=== PATIENT | female | born 1980 | race Caucasian/White ===

== ENCOUNTER 2021-08-18 09:05 | Outpatient (CLI) | payer OTHER, SELFPAY ==
[2021-08-18 09:37] LABS: Hematocrit 38.3 % (37.0-47.0); Hemoglobin 12.8 g/dL (12.0-15.0); Mean Corpuscular HGB Conc 33.4 g/dl (32-36); Mean Corpuscular Hemoglobin 32.2 pg (26-34); Mean Corpuscular Volume 96.5 fl (80-100); Mean Platelet Volume 10.4 fl (7.4-10.4); Platelet Count Result 226 k/mm3 (150-375); Red Blood Count 3.97 M/mm3 (4.2-5.4); Red Cell Distribution Width 13.8 % (11.5-14.5); White Blood Count 8.8 K/mm3 (4.5-10.0)
[2021-08-20 06:16] LABS: Rapid Plasma Reagin Non-Reactive (NonReactive)
== END 2021-08-18 09:06 | disposition home or self-care (01) ==
LOC: ANHLAB 09:06
PROVIDERS: PCP Family Medicine; Visit Provider Obstetrics & Gynecology
DX: Z34.93 Encounter for supervision of normal pregnancy, unspecified, third trimester (principal); Z3A.00 Weeks of gestation of pregnancy not specified
CPT/HCPCS: 36415; 85027; 86592; 86850; 86900; 86901

== ENCOUNTER 2021-08-20 09:56 | Inpatient (IN) | payer OTHER, SELFPAY ==
--- NOTE | 2021-07-30 13:31 | PC.NURSE ---
Verified with OR schedule and patient--c/s on 08/20/21 at 0730 Patient given requisition for pre-op labs on 08/18/21 patient states she is having a tubal ligation with c/s--consents signed
[2021-08-20] VITALS (52 sets, daily range): BP systolic 74–122; BP diastolic 41–80; PULSE 58–89; RESP 14–21; TEMP 36–36.6; O2SAT 91–100; BMI 27.1
--- OUTSIDE RECORDS SUMMARY | 2021-08-20 10:02 | XMS_ITS | Encounter Summary ---
:1980 Author Care Team Providers Name Role Phone Jagruti Sewell MD Primary Care Provider [phone] Reason for Visit OB visit Assessment and Plan 1. Advanced maternal age 2. Diabetes mellitus Discussion Note: None recorded.Patient educational handouts: No information available. Plan of Care Reminders Provider Appointments Surg Post 08/29/2021 Harish Bautista Op 2:30PM MD Deyvi ? 3Hr on or around RN Tate simon RN Glucose 10/05/2021 Lab None ? ? recorded. Referral None ? ? recorded. Procedures None ? ? recorded. Surgeries None ? ? recorded. Imaging None ? ? recorded. Medications Name Start Date ? ? aspirin 81 mg chewable tablet ? clindamycin HCl 300 mg capsule ? TAKE 2 CAPSULES BY MOUTH ONE HOUR BEFOR E SURGERY, AND ONE CAPSULE 8 HOURS AFTER THE FIRST DOSE FreeStyle Lancets 28 gauge ? FreeStyle Lite Meter kit ? Humulin N NPH U-100 Insulin (isophane susp) 100 unit/m L subcutaneous ? INJECT 36 UNITS SUBCUTANEOUSLY AT BEDTIME insulin syringe U-100 with needle 0.5 mL 31 gauge x ? USE DIRECTED magnesium oxide 400 mg (241.3 mg magnesium) tablet ? OneTouch Verio test strips ? Take blood sugar QID. Check fasting and 1 hr post justine akfast, lunch, and dinner
--- OUTSIDE RECORDS SUMMARY | 2021-08-20 10:02 | XMS_ITS | Encounter Summary ---
:1980 Author Care Team Providers Name Role Phone Jagruti Sewell MD Primary Care Provider [phone] Reason for Visit None recorded. Assessment and Plan 1. Gestational diabetes mellitus ? US, obstetric, biophysical profile + non-stress test Discussion Note: None recorded.Patient educational handouts: No information available. Plan of Care Reminders Provider Appointments Surg Post Op 08/29/2021 Francine Bautista 2:30PM MD Deyvi ? 3Hr Glucose on or around RN Schedule, RN 10/05/2021 Lab None ? ? recorded. Referral None ? ? recorded. Procedures None ? ? recorded. Surgeries None ? ? recorded. Imaging US, 08/14/2021 [facility], Biophysical Profile + Non-stress Test Medications Name Start Date ? ? aspirin [...] with needle 0.5 mL 31 gauge x 5/ 16 ? USE DIRECTED magnesium oxide 400 mg (241.3
--- OUTSIDE RECORDS SUMMARY | 2021-08-20 10:02 | XMS_ITS | Encounter Summary ---
:1980 Author Care Team Providers Name Role Phone Jagruti Sewell MD Primary Care Provider [phone] Reason for Visit None recorded. Assessment and Plan 1. Gestational diabetes mellitus , class A>1< ? non-stress test Discussion Note: None recorded.Patient educational handouts: No information available. Plan of Care Reminders Provider Appointments Surg Post 08/29/2021 Harish Bautista Op 2:30PM MD Deyvi ? 3Hr on or around LIZ simon RN Glucose 10/05/2021 Lab None ? ? recorded. Referral None ? ? recorded. Procedures None ? ? recorded. Surgeries None ? ? recorded. Imaging Non-stress 08/07/2021 Amisha norton Test Medications Name Start Date ? ? [...] Check fasting and 1 hr post justine akfa
--- OUTSIDE RECORDS SUMMARY | 2021-08-20 10:02 | XMS_ITS | Encounter Summary ---
:1980 Author Care Team Providers Name Role Phone Jagruti Sewell MD Primary Care Provider [phone] Reason for Visit None recorded. Assessment and Plan 1. Gestational diabetes mellitus , class A>1< ? US, obstetric, biophysical profile + non-stress [...] Surgeries None ? ? recorded. Imaging US, 08/07/2021 [facility] [facility], Biophysical Profile + Non-stress Test Medications [...] x 5/ 16 ? USE DIRECTED magnesium oxid
--- OUTSIDE RECORDS SUMMARY | 2021-08-20 10:02 | XMS_ITS | Encounter Summary ---
:1980 Author Care Team Providers Name Role Phone Jagruti Sewell MD Primary Care Provider [phone] Reason for Visit None recorded. Assessment and Plan 1. Advanced maternal age ? non-stress test Discussion Note: None recorded.Patient educational handouts: No information available. Plan of Care Reminders Provider Appointments Surg Post 08/29/2021 Harish Bautista Op 2:30PM MD Deyvi ? 3Hr on or around RN Tate simon RN Glucose 10/05/2021 Lab None ? ? recorded. Referral None ? ? recorded. Procedures None ? ? recorded. Surgeries None ? ? recorded. Imaging Non-stress 08/14/2021 Marybrunilda norton Test Medications Name Start Date ? [...] 1 hr post justine akfast, lunch, and d
--- OUTSIDE RECORDS SUMMARY | 2021-08-20 10:02 | XMS_ITS ---
:1980 Author Care Team Providers Name Role Phone LYLY DOW MD Primary Care Provider [phone] Allergies Code Code System Name Reaction Severity Status Onset NKDA ? Medications Name Status Start Date Stop Date ? ? aspirin 81 mg chewable tablet Active ? No t available clindamycin HCl 300 mg capsule Active ? N ot available TAKE 2 CAPSULES BY MOUTH ONE HOUR BEFOR E SURGERY, AND ONE CAPSULE 8 HOURS AFTER THE FIRST DOSE erythromycin with ethanol 2 % topical Completed ? 02/13/2021 gel escitalopram 10 mg tablet Completed ? 2020 TAKE 1 TABLET BY MOUTH ONCE DAILY FreeStyle Lancets 28 gauge Active ? Not a vailable FreeStyle Lite Meter kit Active ? Not ariela ilable Humulin N NPH U-100 Insulin (isophane susp) 100 unit/mL subcutan eous Active ? Not available INJECT 36 UNITS SUBCUTANEOUSLY AT BEDTIME hydroxyzine HCl 10 mg tablet Completed ? indomethacin 25 mg capsule Completed ? 01/16 insulin syringe U-100 with needle 0.5 mL 31 gauge x 08/13 Active ? Not available USE DIRECTED magnesium oxide 400 mg (241.3 mg Active ? Not available magnesium) tablet metoclopramide 10 mg tablet Completed ? 01/29 TAKE 1 TABLET BY MOUTH 4 TIMES DAILY NEEDED FOR VOMITING norgestimate-ethinyl estradiol 0.18 Completed ? 01/15/2021 mg/0.215mg/0.25mg-35 mcg(28)tablet OneTouch Verio test strips Active ? Not a vailable Take blood sugar QID. Check fasting and 1 hr post justine akfast, lunch, and dinner
--- OUTSIDE RECORDS SUMMARY | 2021-08-20 10:02 | XMS_ITS | Encounter Summary ---
:1980 Author Care Team Providers Name Role Phone Jagruti Sewell MD Primary Care Provider [phone] Reason for Visit OB visit Assessment and Plan 1. Advanced maternal age Discussion Note: None recorded.Patient educational handouts: No [...] hr post justine akfast, lunch, and dinner ? Medications Admin
--- OUTSIDE RECORDS SUMMARY | 2021-08-20 10:03 | XMS_ITS | Encounter Summary ---
:1980 Author Care Team Providers Name Role Phone Jagruti Sewell MD Primary Care Provider [phone] Reason for Visit None recorded. Assessment and Plan 1. Gestational diabetes mellitus , class A>2< ? non-stress test Discussion Note: None recorded.Patient educational handouts: No information available. Plan of Care Reminders Provider Appointments Surg Post 08/29/2021 Harish Bautista Op 2:30PM MD Deyvi ? 3Hr on or around LIZ simon RN Glucose 10/05/2021 Lab None ? ? recorded. Referral None ? ? recorded. Procedures None ? ? recorded. Surgeries None ? ? recorded. Imaging Non-stress 07/10/2021 Amisha norton Test Medications Name Start Date [...] Check fasting and 1 hr post justine akf
--- OUTSIDE RECORDS SUMMARY | 2021-08-20 10:03 | XMS_ITS | Encounter Summary ---
:1980 Author Care Team Providers Name Role Phone Jagruti Sewell MD Primary Care Provider [phone] Reason for Visit OB visit Assessment and [...]
--- OUTSIDE RECORDS SUMMARY | 2021-08-20 10:03 | XMS_ITS | Encounter Summary ---
:1980 Author Care Team Providers Name Role Phone Jagruti Sewell MD Primary Care Provider [phone] Reason for Visit None recorded. Assessment and Plan 1. Gestational diabetes mellitus , class A>1< ? non-stress test Discussion Note: None recorded.Patient educational handouts: No information available. Plan of Care Reminders Provider Appointments Surg Post 08/29/2021 Harish Bautista Op 2:30PM MD Deyvi ? 3Hr on or around LZI simon RN Glucose 10/05/2021 Lab None ? ? recorded. Referral None ? ? recorded. Procedures None ? ? recorded. Surgeries None ? ? recorded. Imaging Non-stress 07/16/2021 Amisha norton Test Medications Name Start Date [...]
--- OUTSIDE RECORDS SUMMARY | 2021-08-20 10:03 | XMS_ITS | Encounter Summary ---
:1980 Author Care Team Providers Name Role Phone Jagruti Sewell MD Primary Care Provider [phone] Reason for Visit OB visit Assessment and Plan 1. Advanced maternal age 2. Diabetes mellitus 3. Delivery by elective section ? section (SURG) Discussion Note: None recorded.Patient educational handouts: No information available. Plan of Care Reminders Provider Appointments Surg Post 08/29/2021 Harish Bautista Op 2:30PM MD Deyvi ? 3Hr Glucose on or around RN Schedule, RN 10/05/2021 Lab None ? ? recorded. Referral None ? ? recorded. Procedures None ? ? recorded. Surgeries 08/20/2021 [place] Section (SURG) [facility] None ? ? recorded. Medications Name [...]
--- OUTSIDE RECORDS SUMMARY | 2021-08-20 10:03 | XMS_ITS | Encounter Summary ---
:1980 Author Care Team Providers Name Role Phone Jagruti Sewell MD Primary Care Provider [phone] Reason for Visit None recorded. Assessment and [...] Surgeries None ? ? recorded. Imaging Non-stress 07/02/2021 Amisha norton Test Medications Name Start Date [...]
--- OUTSIDE RECORDS SUMMARY | 2021-08-20 10:03 | XMS_ITS | Encounter Summary ---
:1980 Author Care Team Providers Name Role Phone Jagruti Sewell MD Primary Care Provider [phone] Reason for Visit None recorded. Assessment and Plan 1. Pre-existing type 2 diabetes mellitus in ? US, obstetric, follow-up ? US, obstetric, biophysical profile + non-stress [...] Surgeries None ? ? recorded. Imaging US, 07/31/2021 [facility], Follow-up ? , 07/31/2021 [facility], Biophysical Profile + Non-stress Test Medications [...]
--- OUTSIDE RECORDS SUMMARY | 2021-08-20 10:03 | XMS_ITS | Encounter Summary ---
:1980 Author Care Team Providers Name Role Phone Jagruti Sewell MD Primary Care Provider [phone] Reason for Visit None recorded. Assessment and [...] Surgeries None ? ? recorded. Imaging Non-stress 07/23/2021 Amisha norton Test Medications Name Start Date [...]
--- OUTSIDE RECORDS SUMMARY | 2021-08-20 10:03 | XMS_ITS | Encounter Summary ---
:1980 Author Care Team Providers Name Role Phone Jagruti Sewell MD Primary Care Provider [phone] Reason for Visit OB visit Pt is here today for her 32 week ob visi t/ nst/us. Assessment and Plan Assessment Note Patient is ___weeks . Discu ssed plan. 1. Routine care Discussion Note: None recorded.Patient educational handouts: No [...] with needle 0.5 mL 31 gauge x 16 ? USE DIRECTED magnesium oxide 400 mg (241.3 mg magnesium) table
--- OUTSIDE RECORDS SUMMARY | 2021-08-20 10:03 | XMS_ITS | Encounter Summary ---
:1980 Author Care Team Providers Name Role Phone Jagruti Sewell MD Primary Care Provider [phone] Reason for Visit OB visit Assessment and Plan Assessment Note Patient is [...]
--- OUTSIDE RECORDS SUMMARY | 2021-08-20 10:03 | XMS_ITS | Encounter Summary ---
:1980 Author Care Team Providers Name Role Phone Jagruti Sewell MD Primary Care Provider [phone] Reason for Visit None recorded. Assessment and Plan 1. Advanced maternal age ? US, obstetric, biophysical profile + non-stress [...] Surgeries None ? ? recorded. Imaging US, 07/23/2021 [facility], Biophysical Profile + Non-stress Test Medications [...]
--- OUTSIDE RECORDS SUMMARY | 2021-08-20 10:03 | XMS_ITS | Encounter Summary ---
:1980 Author Care Team Providers Name Role Phone Jagruti Sewell MD Primary Care Provider [phone] Reason for Visit None recorded. Assessment and [...] Surgeries None ? ? recorded. Imaging Non-stress 07/31/2021 Marybrunilda norton Test Medications Name Start Date [...] 1 hr post justine akfast, lunch, and di
--- OUTSIDE RECORDS SUMMARY | 2021-08-20 10:03 | XMS_ITS | Encounter Summary ---
:1980 Author Care Team Providers Name Role Phone Jagruti Sewell MD Primary Care Provider [phone] Reason for Visit None recorded. Assessment and Plan 1. Gestational diabetes mellitus , class A>2< ? US, obstetric, biophysical profile + non-stress [...] Surgeries None ? ? recorded. Imaging US, 07/10/2021 [facility], Biophysical Profile + Non-stress Test Medications [...] x 5/ 16 ? USE DIRECTED magnesium oxi
--- OUTSIDE RECORDS SUMMARY | 2021-08-20 10:03 | XMS_ITS | Encounter Summary ---
:1980 Author Care Team Providers Name Role Phone Jagruti Sewell MD Primary Care Provider [phone] Reason for Visit OB visit Assessment and [...]
--- OUTSIDE RECORDS SUMMARY | 2021-08-20 10:03 | XMS_ITS | Encounter Summary ---
:1980 Author Care Team Providers Name Role Phone Jagruti Sewell MD Primary Care Provider [phone] Reason for Visit None recorded. Assessment and [...] Surgeries None ? ? recorded. Imaging US, 07/16/2021 [facility], Biophysical Profile + Non-stress Test Medications [...]
--- OUTSIDE RECORDS SUMMARY | 2021-08-20 10:04 | XMS_ITS | Encounter Summary ---
:1980 Author Care Team Providers Name Role Phone Jagruti Sewell MD Primary Care Provider [phone] Reason for Visit None recorded. Assessment and Plan 1. Gestational diabetes mellitus , class A>1< ? US, obstetric, follow-up ? US, obstetric, transvagina l Discussion Note: None recorded.Patient educational handouts: No information available. Plan of Care Reminders Provider Appointments Surg Post Op 08/29/2021 Francine Bautista 2:30PM MD Deyvi ? 3Hr Glucose on or around RN Schedule, RN 10/05/2021 Lab None recorded. ? ? Referral None recorded. ? ? Procedures None recorded. ? ? Surgeries None recorded. ? ? Imaging US, Obstetric, 06/04/2021 Kasandra cervantes Follow-up ? US, Obstetric, 06/04/2021 Kasandra cervantes Transvaginal Medications Name Start Date ? ? aspirin [...] syringe U-100 with needle 0.5 mL 31 g
--- OUTSIDE RECORDS SUMMARY | 2021-08-20 10:04 | XMS_ITS | Encounter Summary ---
:1980 Author Care Team Providers Name Role Phone Jagruti Sewell MD Primary Care Provider [phone] Reason for Visit OB visit Assessment and [...]
--- OUTSIDE RECORDS SUMMARY | 2021-08-20 10:04 | XMS_ITS ---
:1980 Author Care Team Providers Name Role Phone Jagruti Sewell Primary Care Provider Unavailable Allergies Code Code System Name Reaction Severity Status Onset NKDA ? Medications Name Status Start Date Stop Date ? ? aspirin 81 mg chewable tablet Active ? No t available erythromycin with ethanol 2 % topical gel Active ? Not available escitalopram 10 mg tablet Active ? Not av ailable FreeStyle Lancets 28 gauge Active ? Not a vailable FreeStyle Lite Meter kit Active ? Not ariela ilable FreeStyle Lite Strips Active ? Not availa ble hydroxyzine HCl 10 mg tablet Active ? Not available magnesium oxide 400 mg (241.3 mg Active ? Not available magnesium) tablet metoclopramide 10 mg tablet Active ? Not available norgestimate-ethinyl estradiol 0.18 Active ? Not available mg/0.215mg/0.25mg-35 mcg(28)tablet trazodone 50 mg tablet Active ? Not avail able Notes: DHEA Probiotic Problems Name Status Onset Date Source ? Chronic Interstitial Cystitis Active 03/12/2021 ? Prediabetes Active 03/12/2021 ? Procedures Notes: ear lobe repair during ch ildhood Results Lab Results None recorded. Past Encounters 03/12/2021 Prediabetes Jagruti Sewell MD: [address] , [place] [address], Ph. Social History
--- OUTSIDE RECORDS SUMMARY | 2021-08-20 10:04 | XMS_ITS | Encounter Summary ---
:1980 Author Care Team Providers Name Role Phone Jagruti Sewell MD Primary Care Provider [phone] Reason for Visit None recorded. Assessment and Plan 1. Gestational diabetes mellitus , class A>2< Insulin teaching. Insulin teac macy completed. Pt instructed on insulin at HS and instructed on administration site s. Pt instructed on how to clean the insulin vial and administration site. Instructed on insulin syringe and how to draw up insulin. I demonstrated how to draw up 5 units of insulin and patient returned demonstration. Pt has no questions at th is time. Pt will call after she picks up her insulin rx and syringes if she has quest ions before administering tonight. Pt informed we will call her next week to eloy liraw her BS log. Jagruti Dickinson RN ? US, obstetric, follow-up Discussion Note: None recorded.Patient educational handouts: No information available. Plan of Care Reminders Provider Appointments Surg Post 08/29/2021 Harish Bautista Op 2:30PM MD Deyvi ? 3Hr on or around LIZ simon RN Glucose 10/05/2021 Lab None ? ? recorded. Referral None ? ? recorded. Procedures None ? ? recorded. Surgeries None ? ? recorded. Imaging US, 07/02/2021 [facility], Follow-up Medications Name Start Date ? ?
--- OUTSIDE RECORDS SUMMARY | 2021-08-20 10:04 | XMS_ITS | Encounter Summary ---
:1980 Author Care Team Providers Name Role Phone Jagruti Sewell MD Primary Care Provider [phone] Reason for Visit OB visit Assessment and [...]
--- NOTE | 2021-08-20 10:15 | LDADM ---
This patient, Cheikh Borrero, was admitted to Labor/Delivery/Recovery 120 on 08/20/21 at 09:56. Plans for labor, pain management and were discussed with patient. Patient/family oriented to hospital policies and general routines including ID bracelet, bed and alarms, visiting hours, pain management, procedures, bathroom and other care routines, personal items, smoking policy, room service/diet and guest tray routines, security routines, and visiting hours. Patient/Family are encouraged to report perceived risks to care and to ask questions if they do not understand what they are told or what they should do. See OBIX for further documentation.
[2021-08-20] MEDS: LACTATED RINGERS 1,000 ML 125 ML IV CONT ×2 (10:32→11:27)
[2021-08-20 10:56] LABS: Glucose Point of Care 91 mg/dl (65-105)
--- NOTE | 2021-08-20 11:16 | P.PNAN_ITS ---
Anes - Initial Pre Proc Eval Procedure: Operation Date: 08/20/21 07:30 Proposed Procedures p Section with Bilateral Tubal Ligation - Katlyn Carnes MD Date/Time: 08/20/21 11:16 Surgeon: Kamini Ware MD Pre Op Diagnosis: C/S Patient Data Age: 41 Gender: F Height: 1.68 m Weight: 76.3 kg Last Vital Signs Pulse 79 08/20/21 11:15 BP 118/63 08/20/21 11:15 Allergies Allergy/AdvReac Type Severity Reaction Status Date / Time No Known Allergies Allergy Verified 08/20/21 10:23 Home Medications Medication Instructions Recorded Confirmed Type PNV no.23-wmxr-ycemt acid 1 tablet PO DAILY 07/30/21 08/20/21 History [Complete ] DHA+Complete 1 tab-cap PO DAILY 07/30/21 08/20/21 History lactobacillus comb no.10 20,000 mmu cells PO DAILY 07/30/21 08/20/21 History [Probiotic] insulin NPH isoph U-100 human 42 unit SUBCUT HS 08/20/21 08/20/21 History [Humulin N NPH U-100 Insulin] Laboratory Tests 08/20/21 10:54 POC Capillary Glucose 91 mg/dl mg/dl (65-105) Patient hx anesthesia problems: none Family hx anesthesia problems: none Results Review: All pre-operative results and documents have been reviewed as part of the pre-operative evaluation. [facility] Past Medical History Medical History (Updated 08/20/21 @ 11:17 by Naun Edgar DO) GDM (gestational diabetes mellitus) Interstitial cystitis Migraine Family History Family History (Updated 07/30/21 @ 13:06 by Bnog Garcia RN) Father Diabetes mellitus Heart disease Hypertension Mother Cerebral palsy Depression Migraines Cerebrovascular accident Gestational diabetes Grandparent Migraines Stomach ulcer Grandparent Diabetes mellitus Heart disease Hypertension Grandparent Epilepsy Social History Social History Smoking packs per day: 1 Smoking cigarettes per day: 20.0 Years smoked: 13 Smoking pack-years: 13.00 Smoking status: Never smoker Tobacco type: cigarettes Smoking end date: 03/31/11 Alcohol intake: current Drinks per week: 2 Substance use: never Substance use type: marijuana Spiritual care concerns: No Anes - Eval Final PreProcedure Day of Procedure 08/20/21 11:16 Patient weight: overweight Heart: regular rate and rhythm Lungs: clear to auscultation and normal air movement Airway: Mallampati scale class II Neurological: alert and oriented Last oral intake: >/= 8 hours ASA classification: III Emergent: no Anesthetic plan: proceed Anesthesia type and monitoring: regional spinal and standard monitoring Results Review: All pre-operative results and documents have been reviewed as part of the pre-operative evaluation. Informed Consent: The patient's anesthetic plan and its attendant risks and b enefits were discussed with the patient/family/POA. Questions were solicited and answers provided to the satisfaction of the patient/family/POA.
--- NOTE | 2021-08-20 12:12 | WPDHPUPDATE1 ---
History and Physical Update Update Date/Time: 08/20/21 12:12 History and Physical has been reviewed, including an updated exam of the patient. There are NO changes in the patient's condition. Risks, benefits, and alternatives have been discussed and questions answered. Patient agrees to proceed with procedure.
--- NOTE | 2021-08-20 12:12 | PM.IMHP ---
H&P: HPI History of Present Illness Date/Time: 08/20/21 12:12This patient is 41-year-old multiparous female who presents for primary delivery. She is at 39 weeks gestation has history of pelvic floor dysfunction. She desires female sterilization. We have agreed to perform low-transverse delivery and bilateral tubal ligation. She understands the risks and that injuries may occur during the surgery. She understands that injuries from result in hospitalization, more surgery, and severe illness. She understands risk of hemorrhage infection. Chief Complaint: Term Review of Systems Review of Systems: All systems reviewed & are unremarkable except as noted in HPI and below Constitutional: Constitutional: Denies chills, Denies fatigue, Denies fever(s) and Denies weakness Eyes: Eyes: Denies blurry vision, Denies change in vision, Denies loss of peripheral vision, Denies loss of vision, Denies other visual disturbances and Denies eye pain ENT: Denies vertigo, Denies dizziness, Denies hearing loss, Denies mouth pain, Denies nasal obstruction, Denies neck mass and Denies neck pain Cardiovascular: Cardiovascular: Denies chest pain, Denies diaphoresis, Denies syncope, Denies leg edema and Denies dyspnea Respiratory: Respiratory: Denies chest congestion, Denies cough, Denies hemoptysis, Denies dyspnea and Denies wheezing Gastrointestinal: Gastrointestinal: Denies abdominal pain, Denies constipation, Denies diarrhea, Denies nausea and Denies vomiting Genitourinary: Genitourinary: Denies hematuria, Denies change in libido, Denies nocturia, Denies genital lesions, Denies flank pain and Denies urinary urgency Musculoskeletal: Musculoskeletal: Denies abnormal gait, Denies back pain, Denies myalgias, Denies arthralgias, Denies joint swelling, Denies muscle weakness and Denies neck pain Integumentary/Breasts: Skin/Breast: Denies swelling, Denies breast pain, Denies breast mass, Denies dry skin, Denies nipple discharge, Denies unusual bruising and Denies jaundice Neurologic: Denies Neuro-related abnormal movements, Denies Abnormal speech present, Denies abnormal gait, Denies behavioral changes, Denies confusion, Denies vertigo, Denies dizziness, Denies syncope, Denies loss of vision, Denies memory loss, Denies convulsions and Denies weakness Psychiatric: Psychiatric: Denies abnormal sleep pattern, Denies behavioral changes, Denies change in libido, Denies confusion, Denies depression, Denies anhedonia and Denies memory loss Endocrine: Endocrine: Reports no additional endocrine complaints, Denies change in libido and Denies fatigue Hematologic/Lymphatic: Hematologic/Lymphatic: Reports no additional hematologic/lymphatic complaints Allergic/Immunologic: Allergic/Immunologic: Reports no additional allergic/immunologic complaints and Denies wheezing PMFSH Past Medical History Medical History (Updated 08/20/21 @ 12:13 by Katlyn Carnes MD) GDM (gestational diabetes mellitus) Interstitial cystitis Migraine Family History Family History (Updated 07/30/21 @ 13:06 by Bong Garcia RN) Father Diabetes mellitus Heart disease Hypertension Mother Cerebral palsy Depression Migraines Cerebrovascular accident Gestational diabetes Grandparent Migraines Stomach ulcer Grandparent Diabetes mellitus Heart disease Hypertension Grandparent Epilepsy Social History Social History Smoking packs per day: 1 Smoking cigarettes per day: 20.0 Years smoked: 13 Smoking pack-years: 13.00 Smoking status: Never smoker Tobacco type: cigarettes Smoking end date: 03/31/11 Alcohol intake: current Drinks per week: 2 Substance use: never Substance use type: marijuana Spiritual care concerns: No Meds Home Medications and Allergies Home Medications Medication Instructions Recorded Confirmed Type PNV no.[id number] acid 1 tablet PO D
[2021-08-20] MEDS: KETOROLAC 30 MG/ML VIAL (*BKC) 15 MG IV PUSH (12:40)
--- NOTE | 2021-08-20 12:54 | W.PM.PROC2 ---
Procedure Note - Detailed Date of Procedure 08/20/21 Pre-op Diagnosis C/S, pelvic floor dysfunction and female sterilization Post-op Diagnosis Same Procedure Performed Low-transverse section Surgeon Katlyn Carnes MD Anesthesia Spinal Findings Normal gestational maternal anatomy, average size infant, normal Apgars. Description of Procedure The patient was taken the operating room. She was prepped and draped in dorsal supine position with a leftward tilt. This was done after spinal anesthetic was applied. A low-transverse skin incision was made and carried down till of the fascia with the knife. The fascial incision was made with the knife. The fascial incision was extended laterally with Mcwilliams scissors. The fascia was tented upward superiorly and inferiorly the rectus muscles were dissected off bluntly. The rectus muscles were the midline. The preperitoneal fat and peritoneum were dissected open bluntly at the superior aspect of the rectus muscles. The peritoneal incision was extended superior and inferior with good position of bladder. The uterine incision was made with a scalpel down to the level of the amniotic cavity. The amniotic cavity was entered bluntly. The was delivered. The cord was clamped and cut and the was handed off to waiting pediatric staff. Cord bloods were obtained. The placenta was removed manually. The uterus was exteriorized. The uterus was cleared of all clots, debris and membranes. The uterus was closed in 0 Vicryl running lock fashion. An imbricating over a was placed along the incision line as well. Each fallopian tube was grasped and raised with a Mitzy. With from the underlying venous structures. The mesosalpinx between the tube and the rest the adnexa was cauterized and transected with LigaSure cautery. It was performed from the distal tube near the ovary in a stepwise fashion towards the cornua. The tube at the cornua was cauterized transected with LigaSure cautery. This was performed in a bilateral fashion. The uterus was returned to the abdomen. The gutters were cleared of all clots and debris. The fascia was closed with 0 Vicryl running fashion. The subcutaneous tissue was irrigated pinpoint bleeders were cauterized. The skin was closed with subcuticular absorbable juan. The skin incision line was covered with glue. The patient tolerated the procedure well. She has taken recovery room in stable condition. Sponge lap and needle counts were correct x2. Packing No Pathology Yes Complications No immediate complications Condition Stable Disposition PACU
[2021-08-20] MEDS: OXYTOCIN 30 UNITS/NS 500 ML 30 UNITS/500 ML BAG 125 UNITS IV CONT (13:56)
[2021-08-20] MEDS: fentaNYL CITRATE INJ (*CRX) 100 MCG/2 ML VIAL 25 MCG IV PUSH (15:09)
--- NOTE | 2021-08-20 15:13 | PC.NURSE ---
Called at 1452 to give report. Report given to nurse at this time.
--- NOTE | 2021-08-20 15:20 | PC.NURSE ---
Patient transferred to post room #282 per stretcher from labor and delivery. Support person present. Oriented to unit, room, information board, rooming in, admission packet and security measures. Patient verbalizes understanding.
[2021-08-20] MEDS: DEXTROSE 5%/0.45% SOD CHL 1,000 ML 125 ML IV CONT (17:50)
[2021-08-21] MEDS: SIMETHICONE 80 MG TAB.CHEW PO ×4 (01:58→21:31)
[2021-08-21] MEDS: IBUPROFEN 600 MG TABLET PO ×4 (01:58→21:31)
[2021-08-21 07:05] LABS: Basophils Absolute Auto 0.1 K/mm3 (0.0-0.1); Basophils Percent Auto 0.4 % (0.2-1.2); Eosinophils Absolute Auto 0.1 K/mm3 (0-0.3); Eosinophils Percent Auto 0.9 % (0-4.4); Hemoglobin 11.6 g/dL (12.0-15.0); Immature Granulocyte Absolute 0.08 K/mm3 (0.00-0.031); Immature Granulocyte Percent A 0.6 % (0-0.5); Lymphocytes Absolute Auto 0.99 K/mm3 (0.9-3.2); Lymphocytes Percent Auto 7.7 % (18.3-44.2); Mean Corpuscular HGB Conc 33.1 g/dl (32-36); Mean Corpuscular Hemoglobin 31.8 pg (26-34); Mean Corpuscular Volume 95.9 fl (80-100); Mean Platelet Volume 10.4 fl (7.4-10.4); Monocytes Absolute Auto 0.7 K/mm3 (0.1-0.6); Monocytes Percent Auto 5.4 % (2.6-8.5); Neutrophils Absolute Auto 10.9 K/mm3 (1.3-6.7); Platelet Count Result 226 k/mm3 (150-375); Red Blood Count 3.65 M/mm3 (4.2-5.4); Red Cell Distribution Width 13.8 % (11.5-14.5); White Blood Count 12.9 K/mm3 (4.5-10.0)
[2021-08-21 07:40] VITALS: BP 122/58; PULSE 80; RESP 18; TEMP 37.6; O2SAT 98
[2021-08-21] MEDS: MULTIVIT/MIN/PREN/FOL AC/IRON TABLET 1 TAB PO (08:15)
[2021-08-21] MEDS: DOCUSATE SODIUM 100 MG CAPSULE PO (08:15)
[2021-08-21 12:07] VITALS: BP 118/52; PULSE 82; RESP 16; TEMP 36.8; O2SAT 98
--- NOTE | 2021-08-21 14:28 | WPDANLDPN2 ---
Anes-Prog Note L&D Date/Time: 08/21/21 14:28 Comfortable throughout: section Neuraxial method: spinal Epidural/Spinal procedure site: clean & non-tender Neuro status: Neuro function grossly intact. Cardiovascular status: normal Respiratory status: normal Airway patency: baseline Mental status: baseline Post-Op hydration status: normal Vital Signs: Last Vital Signs Temp 36.8 C 08/21/21 12:07 Pulse 82 08/21/21 12:07 Resp 16 08/21/21 12:07 BP 118/52 L 08/21/21 12:07 Pulse Ox 98 08/21/21 12:07 O2 Del Method Room Air 08/21/21 08:15 Pain score (VAS): 04/09 I/O: Intake & Output 08/20/21 08/21/21 08/21/21 23:59 07:59 15:59 Intake Total 3300 600 Output Total 1875 3700 Balance 1425 -3100 Post-procedural complaints: none Patient feedback: Patient satisfied with anesthetic care.
--- NOTE | 2021-08-21 14:28 | WPDANLDNPN2 ---
Anes-Prog Note L&D-Neuraxial Date/Time: 08/21/21 14:28 Neuraxial medications: intrathecal PF morphine Opiod-related complaints: pruritis mild, no treatment Patient feedback: Patient satisfied with post-operative pain management.
[2021-08-21 18:56] VITALS: BP 134/57; PULSE 84; RESP 18; TEMP 36.9
[2021-08-21] MEDS: HYDROcodone/acetaminophen (*CRX) 5-325 MG TABLET 1 TAB PO (21:31)
[2021-08-22] MEDS: SIMETHICONE 80 MG TAB.CHEW PO ×2 (04:54→10:16)
[2021-08-22] MEDS: HYDROcodone/acetaminophen (*CRX) 5-325 MG TABLET 1 TAB PO ×2 (04:54→10:16)
[2021-08-22] MEDS: IBUPROFEN 600 MG TABLET PO (04:54)
--- NOTE | 2021-08-22 07:13 | PM.OBPNVD ---
OB - PN: Subj Subjective Date/time seen: 08/22/21 07:13 OB - PN: Obj Data Labs CBC & Chem 7: 08/21/21 03:00 OB - PN A/P Plan day: 2 Plan: routine care and discharge home Time Spent With Patient Time: Total time spent is greater than 50% in coordination of care (as documented) at patient's floor/unit and/or counseling patient: Review of Systems Review of Systems: All systems reviewed & are unremarkable except as noted in HPI and below Exam Narrative: Incision clean, dry, intact. Const: General: cooperative, healthy appearing and comfortable
--- NOTE | 2021-08-22 07:17 | PM.OBDSVD ---
DS: Admitting Diagnosis Discharge Date 08/22/21 Admitting Diagnosis section OB - DS: Summary OB Procedures : None OB Procedures Intrapartum: OB Procedures: : None Peripartum Data Procedures: Procedures Operation Date: 08/20/21 07:30 Actual Procedure Side Surgeon p Section Bilateral Katlyn Carnes MD Time Spent with Patient Time attestation: Total time spent providing and/or coordinating discharge services: DS: Data Data Completed and Pending Pending studies at discharge: Pending at discharge 08/20/21 12:36 Surgical [PTH] Routine Surgical [PTH] Routine Surgical [PTH] Routine Discharge Plan Discharge Attending physician on discharge: Katlyn Carnes Discharging Clinician: Saray Gillespie Anticipated Discharge Date/Time: 08/22/21 07:16 Patient Disposition: Home, Self-Care Activity: pelvic rest Diet: regular Patient Instructions: Antibiotic Form Stand Alone Forms: General Discharge Information Follow-up/Referrals: Katlyn Carnes MD [Physician] - (1 week) Discharge Medications: Continued Probiotic 20 billion cell Capsule 20,000 mmu cells PO DAILY DHA+Complete 1 tab-cap PO DAILY Discontinued Complete 30-975 mg-mcg Tablet 1 tablet PO DAILY Humulin N NPH U-100 Insulin 100 unit/mL suspension 42 unit SUBCUT HS Date of admission: 08/20/21 09:56 Primary Care Provider: Mile Cornejo Admitting Provider: Kamini Ware Attending physician on admission: Kamini Ware Condition: Stable
--- NOTE | 2021-08-22 07:46 | PC.NURSE ---
late entry from 08/21/2021 [id number] Introductions were made, then consulted with patient to assess needs related to . Mother led the conversation with her experience feeding her so far. Mother works well with her working with getting a deeper latch with large nipples. Encouraged understanding of the benefits of skin to skin (unwrapping and placing vertically on her chest), responsive feeding and how to watch for early feeding signs, frequency of feeding on demand about every 8-12 times in 24 hours (every 2-3 hours), milk production, duration of feeding, signs of adequate intake/output and how to record on the feeding sheet. Reviewed positioning and ear, shoulder, hip alignment, supporting the breast, asymmetrical latch (off-center), and leading with the chin with a big open side gape. latched optimally to the right breast in cross cradle position. Education given to mother of how to visualize suck/swallow ratios and drinking at the breast. Infant was able to maintain latch without discomfort to mother. Nipple care reviewed with optimal latch and good positioning. Reminding mother of comfort measures of healing with a warm and wet washcloth to rinse breast, then leave open to air-dry as needed. Reviewed good handwashing when or touching the breast/nipples to prevent infection. Resources used to facilitate learning were used with the visual handouts/mom and baby guide. Mother voiced understanding of responsive feedings, stimulating with skin to skin, hand expressed colostrum, touch, talking to infant to encourage if it has been 2 -3 hours since the start of the last , to call if does not latch or there is discomfort with . Father of actively involved with encouragement, education, and information to help mother with understanding. Reported to the primary RN.
[2021-08-22 08:20] VITALS: BP 112/64; PULSE 77; RESP 16; TEMP 36.4; O2SAT 99
[2021-08-22] MEDS: MULTIVIT/MIN/PREN/FOL AC/IRON TABLET 1 TAB PO (10:16)
[2021-08-22] MEDS: DOCUSATE SODIUM 100 MG CAPSULE PO (10:16)
--- NOTE | 2021-08-22 13:59 | PC.NURSE ---
1016 Patient was given the opportunity to view the discharge video Mother & Baby Care, The First Two Weeks and to ask questions. Patient declined viewing the video and has been given the mother/baby guide for home reference.
--- NOTE | 2021-08-22 15:18 | PC.NURSE ---
[id number] Mother led the conversation with her experience and plan to feed her infant so far and her ability to continue with the plan of attempting to breastfeed/pump/supplement to feed . Mother is mostly pumping and feeding. Assessed pump flange (breast shield) fit for proper sizing. Instructions given on cleaning, care, usage, there should be no pain, pumping schedule for milk production, collection, and storage of human milk. Parents are encouraged to record pumping schedule on the feeding sheet. Patient was assessed for correct placement, flange size, to pump for comfort and nipple stretching/stimulation for adequate milk production. Mother is feeding appropriately for growth of and understands stimulating to eat if needed. has had appropriate feedings in the last 24 hours meets the outcomes for weight, output and jaundice at this time. Mother states she is confident to continue attempt to breastfeed/pumping/supplementing her infant at home or when to call for assistance and denies any additional assistance or education at this time. Reinforced understanding of milk production, transition of milk, signs of adequate intake, prevention/relief of engorgement, responsive after visualizing feeding cues, the different methods of stimulating infant to breastfeed 2-3 hours after the start of the last feeding, community resources, medication information reviewed per [employer] and when to call a provider using the resource of the mom and baby guide/[facility] website. Mother voiced understanding of the education shared. Reported to the primary RN.
[2021-08-23 10:43] VITALS: BP 127/59; PULSE 86; RESP 20; TEMP 36.9; O2SAT 100
== END 2021-08-22 13:10 | disposition home or self-care (01) | DRG 785 ==
LOC: ANHOB2 08-22 12:50 → ANHLDR 08-23 11:39 → ANHOB2 08-23 11:39
PROVIDERS: Admitting Provider Obstetrics & Gynecology; PCP Family Medicine; Visit Provider Obstetrics & Gynecology
PROC: 10D00Z1 Extraction of Products of Conception, Low, Open Approach (ICD-10-PCS; CPT 59514; principal; 2021-08-20 07:30)
DX: O24.429 Gestational diabetes mellitus in childbirth, unspecified control (principal); Z3A.39 39 weeks gestation of pregnancy; Z37.0 Single live birth; Z30.2 Encounter for sterilization; M62.89 Other specified disorders of muscle
CPT/HCPCS: 36415; 82948; 85025; 85027; 86592; 86850; 86900; 86901; 88302; 88307; A9270; J1885; J2274; J2590; J2710; J3010; J7120

== ENCOUNTER → 2022-07-10 13:59 | Outpatient (CLI) | payer OTHER, SELFPAY ==
--- NOTE | ~2022-07-10 | MM_ITS ---
EXAMINATION: MM screening dipak BI w isac HISTORY: Screening mammogram TECHNIQUE: Craniocaudal and mediolateral oblique 3-D tomosynthesis images were obtained and synthetic 2-D images were generated. CAD analysis was submitted and interpreted. COMPARISON: No prior mammogram is available for comparison at this institution. BREAST PARENCHYMAL COMPOSITION: The breasts are heterogeneously dense, which may obscure small masses . FINDINGS: There is no evidence of suspicious mass, calcification, or architectural distortion to sugg est malignancy in either breast. There has been no suspicious interval change. IMPRESSION: 1. No mammographic evidence of malignancy. 2. Recommend routine screening mammography in one year. BI-RADS Category 1: Negative Reviewed, dictated and finalized at location A.
== END ==
PROVIDERS: PCP Family Medicine; Visit Provider Family Medicine
DX: Z12.31 Encounter for screening mammogram for malignant neoplasm of breast (principal)
CPT/HCPCS: 77063; 77067

== ENCOUNTER 2024-06-09 10:24 | Outpatient (CLI) | payer OTHER, SELFPAY ==
--- NOTE | ~2024-06-09 | MM_ITS ---
EXAMINATION: MM screening dipak BI w isac HISTORY: Screening mammogram TECHNIQUE: Craniocaudal and mediolateral oblique 3-D tomosynthesis images were obtained and synthetic 2-D images were generated. CAD analysis was submitted and interpreted. COMPARISON: 07/10/2022 BREAST PARENCHYMAL COMPOSITION:Dense: The breasts are extremely dense, which lowers the sensitivity o f mammography. FINDINGS: No suspicious mass, calcification, or architectural distortion are identified in either justine ast to suggest malignancy. There has been no suspicious interval change. IMPRESSION: No mammographic evidence of malignancy. Recommend routine screening mammography in one year. BI-RADS Category 1: Negative Reviewed, dictated and finalized at location .
== END 2024-06-09 10:25 | disposition home or self-care (01) ==
PROVIDERS: PCP Student in an Organized Health Care Education/Training Program; Visit Provider Student in an Organized Health Care Education/Training Program
DX: Z12.31 Encounter for screening mammogram for malignant neoplasm of breast (principal)
CPT/HCPCS: 77063; 77067